=== PATIENT | female | born 1955 | race Caucasian/White ===

== ENCOUNTER 2016-10-14 05:33 | Emergency (ER) | payer BC ==
[2016-10-14] MEDS ORDERED: KETOROLAC 30 MG/ML 1 ML VIAL IVP STA (06:11)
[2016-10-14] MEDS ORDERED: RX INFO: IV CONTRAST WAS GIVEN 1 EACH MISC MISCELLANE PRN (06:11)
[2016-10-14] MEDS ORDERED: SODIUM CHLORIDE 0.9% 1,000 ML IV STA (06:11)
[2016-10-14 06:29] LABS: Basophils % (A) 0 %; CH 33.5; CHCM 34.5; Eosinophils # (A) 0.1 k/uL (0-0.7); Eosinophils % (A) 1 %; HCT 37.7 % (34.0-46.0); HDW 2.81; HGB 12.6 gm/dL (11.4-16.0); Luc # (Auto) 0.08; Luc % (Auto) 1; Lymphocytes # (A) 1.2 k/uL (1.0-4.8); Lymphocytes % (A) 18 %; MCH 32.7 pg (25.0-35.0); MCHC 33.5 g/dL (31.0-37.0); MCV 97.6 fL (80.0-100.0); Mean Platelet Volume 8.3; Monocytes # (A) 0.2 k/uL (0-1.0); Monocytes % (A) 4 %; Neutrophils # (A) 5.2 k/uL (1.3-7.7); Neutrophils % (A) 76 %; RBC 3.86 m/uL (3.80-5.40); RDW 13.3 % (11.5-15.5); WBC 6.9 k/uL (3.8-10.6); WBC (Perox) 7.01
[2016-10-14 06:34] LABS: Appearance,Urine Clear (Clear); Bacteria,Urine Rare /hpf; Bilirubin,Urine Negative (Negative); Glucose,Urine (UA) Negative (Negative); Ketones,Urine Negative (Negative); Leukocyte Esterase,Urine Small (Negative); Mucus,Urine Rare /hpf; Nitrite,Urine Negative (Negative); PH, Urine 5.5 (5.0-8.0); Particle Count 1575; Protein,Urine Negative (Negative); RBC,Urine 1 /hpf (0-5); Specific Gravity,Urine 1.017 (1.001-1.035); Squamous Epithelial Cell,Urine 2 /hpf (0-4); UA Billing (MACRO vs. MICRO) MICRO; Urobilinogen,Urine <2.0 mg/dL (<2.0); WBC,Urine 3 /hpf (0-5)
[2016-10-14 06:43] LABS: Partial Thromboplastin Time 23.8 sec (22.0-30.0); Prothrombin Time 9.9 sec (9.0-12.0)
[2016-10-14 06:54] LABS: ALT 29 U/L (9-52); AST 18 U/L (14-36); Alkaline Phosphatase 92 U/L (38-126); Amylase 45 U/L (30-110); Anion Gap 9 mmol/L; Blood Urea Nitrogen 25 mg/dL (7-17); Calcium 9.2 mg/dL (8.4-10.2); Carbon Dioxide 29 mmol/L (22-30); Chloride 104 mmol/L (98-107); Glucose 107 mg/dL (74-99); Non-African American GFR(MDRD) >60 (>60 ml/min/1.73 sqM); Potassium 4.3 mmol/L (3.5-5.1); Sodium 142 mmol/L (137-145); Total Bilirubin 0.3 mg/dL (0.2-1.3); Total Protein 6.6 g/dL (6.3-8.2)
--- NOTE | 2016-10-14 07:07 | ED ---
Abdominal Pain HPI - General Source: patient Mode of arrival: ambulatory Limitations: no limitations <Cortes Swain - Last Filed: 10/14/16 07:04> <Bladimir De Oliveira - Last Filed: 10/14/16 08:59> - General Chief Complaint: Abdominal Pain Stated Complaint: Flank Pain Time Seen by Provider: 10/14/16 06:05 - History of Present Illness Initial Comments: This 61-year-old female presents with a complaint of some left-sided abdominal pain which is been present for approximately 4 days. She states that his been fairly severe in nature. She saw her doctor approximately 2 days ago and was told that it may be related to some constipation. He apparently put her on some medication for constipation and she's had multiple bowel movements since but the abdominal pain has persisted. She denies any nausea vomiting or diarrhea. She denies any fevers or chills. She states that it is in the left abdomen and slightly lower. There is no flank pain. No other complaints or modifying factors. No previous similar incidents. (Cortes Swain) - Related Data Home Medications Medication Instructions Recorded Confirmed Atenolol [Tenormin] 50 mg PO DAILY 10/14/16 10/14/16 Cholecalciferol [Vitamin D3] 400 unit PO DAILY@1200 10/14/16 10/14/16 Losartan/Hydrochlorothiazide 1 each PO DAILY 10/14/16 10/14/16 [Losartan-Hctz 100-25 mg Tab] Omeprazole 40 mg PO DAILY 10/14/16 10/14/16 Previous Rx's Medication Instructions Recorded Acetaminophen-Codeine 300-30mg 1 each PO Q4H PRN #12 tablet 10/14/16 [Tylenol #3] Levofloxacin [Levaquin] 500 mg PO DAILY #10 tab 10/14/16 metroNIDAZOLE [Flagyl] 500 mg PO QID #40 tab 10/14/16 Allergies Allergy/AdvReac Type Severity Reaction Status Date / Time No Known Allergies Allergy Verified 10/14/16 05:47 Review of Systems ROS Other: All systems not noted in ROS Statement are negative. <Cortes Swain - Last Filed: 10/14/16 07:04> ROS Other: All systems not noted in ROS Statement are negative. <Bladimir De Oliveira - Last Filed: 10/14/16 08:59> ROS Statement: Those systems with pertinent positive or pertinent negative responses have been documented in the HPI. Past Medical History Past Medical History: GERD/Reflux, Hypertension History of Any Multi-Drug Resistant Organisms: None Reported Past Surgical History: Orthopedic Surgery Additional Past Surgical History / Comment(s): bilat shoulder and knee surgeries. states she had gallstones removed but she is unsure if they removed the gallbladder itself. Past Psychological History: No Psychological Hx Reported Smoking Status: Never smoker Past Alcohol Use History: None Reported Past Drug Use History: None Reported <Cortes Swain - Last Filed: 10/14/16 07:04> General Exam Limitations: no limitations <Cortes Swain - Last Filed: 10/14/16 07:04> <Bladimir De Oliveira - Last Filed: 10/14/16 08:59> - General Exam Comments Initial Comments: GENERAL: The patient is well nourished and well hydrated. VITAL SIGNS: Heart rate, blood pressure, respiratory rate reviewed as recorded in nurse's notes. EYES: Pupils are round and reactive. Extraocular movements are intact. No conjunctival / lid redness or swelling. ENT: No external evidence of injury, swelling, or ecchymosis. Airway is patent. Throat is clear. NECK: Nontender. No swelling or evidence of injury. No subcutaneous emphysema. Trachea is midline. No thyroid mass. HEART: Regular rate and rhythm. Good peripheral pulses. LUNGS/CHEST: Breath sounds clear and equal bilaterally. No rales, rhonchi, or wheezes. No ecchymosis, subcutaneous emphysema, or tenderness. ABDOMEN: There is tenderness to the mid left abdomen and just inferior. No palpable masses or organomegaly. No peritoneal signs. No abdominal wall swelling or ecchymosis. EXTREMITIES: No extremity tenderness. Normal muscle tone and function. No thoracolumbar tenderness. NEUROLOGIC: Sensation is grossly intact. Cranial nerve exam reveals face is symmetrical, tongue is midline, speech is clear. SKIN: No abrasions or ecchymosis is noted. No induration or masses noted. PSYCHIATRIC: Alert and oriented. Appropriate behavior and judgment. (Cortes Swain) Medical Decision Making - Lab Data Result diagrams: 10/14/16 05:55 <Cortes Swain - Last Filed: 10/14/16 07:04> - Lab Data Result diagrams: 10/14/16 05:55 10/14/16 05:55 - Radiology Data Radiology results: report reviewed (Computed tomography scan of the head and pelvis have findings consistent with diverticulitis.) <Bladimir De Oliveira - Last Filed: 10/14/16 08:59> - Medical Decision Making The patient was seen and examined. All diagnostics were reviewed to this point. Further care will be passed on to oncoming physician at 7 AM. (Cortes Swain) Patient reevaluated and resting comfortably in bed. Abdomen soft with mild tenderness left lower quadrant. Patient updated on results and need for follow- up. (Bladimir De Oliveira) - Lab Data Lab Results 10/14/16 10/14/16 10/14/16 Range/Units 05:55 05:55 05:55 WBC 6.9 (3.8-10.6) k/uL RBC 3.86 (3.80-5.40) m/uL Hgb 12.6 (11.4-16.0) gm/dL Hct 37.7 (34.0-46.0) % MCV 97.6 (80.0-100.0) fL MCH 32.7 (25.0-35.0) pg MCHC 33.5 (31.0-37.0) g/dL RDW 13.3 (11.5-15.5) % Plt Count 228 (150-450) k/uL Neutrophils % 76 % Lymphocytes % 18 % Monocytes % 4 % Eosinophils % 1 % Basophils % 0 % Neutrophils # 5.2 (1.3-7.7) k/uL Lymphocytes # 1.2 (1.0-4.8) k/uL Monocytes # 0.2 (0-1.0) k/uL Eosinophils # 0.1 (0-0.7) k/uL Basophils # 0.0 (0-0.2) k/uL PT 9.9 (9.0-12.0) sec INR 1.0 (<1.2) APTT 23.8 (22.0-30.0) sec Sodium 142 (137-145) mmol/L Potassium 4.3 (3.5-5.1) mmol/L Chloride 104 (98-107) mmol/L Carbon Dioxide 29 (22-30) mmol/L Anion Gap 9 mmol/L BUN 25 H (7-17) mg/dL Creatinine 0.83 (0.52-1.04) mg/dL Est GFR (MDRD) Af Amer >60 (>60 ml/min/1.73 sqM) Est GFR (MDRD) Non-Af >60 (>60 ml/min/1.73 sqM) Glucose 107 H (74-99) mg/dL Calcium 9.2 (8.4-10.2) mg/dL Total Bilirubin 0.3 (0.2-1.3) mg/dL AST 18 (14-36) U/L ALT 29 (9-52) U/L Alkaline Phosphatase 92 (38-126) U/L Total Protein 6.6 (6.3-8.2) g/dL Albumin 3.9 (3.5-5.0) g/dL Amylase 45 (30-110) U/L Lipase 110 (23-300) U/L Urine Color Urine Appearance (Clear) Urine pH (5.0-8.0) Ur Specific [place] (1.001-1.035) Urine Protein (Negative) Urine Glucose (UA) (Negative) Urine Ketones (Negative) Urine Blood (Negative) Urine Nitrite (Negative) Urine Bilirubin (Negative) Urine Urobilinogen (<2.0) mg/dL Ur Leukocyte Esterase (Negative) Urine RBC (0-5) /hpf Urine WBC (0-5) /hpf Ur Squamous Epith Cells (0-4) /hpf Urine Bacteria (None) /hpf Urine Mucus (None) /hpf 10/14/16 Range/Units 05:55 WBC (3.8-10.6) k/uL RBC (3.80-5.40) m/uL Hgb (11.4-16.0) gm/dL Hct (34.0-46.0) % MCV (80.0-100.0) fL MCH (25.0-35.0) pg MCHC (31.0-37.0) g/dL RDW (11.5-15.5) % Plt Count (150-450) k/uL Neutrophils % % Lymphocytes % % Monocytes % % Eosinophils % % Basophils % % Neutrophils # (1.3-7.7) k/uL Lymphocytes # (1.0-4.8) k/uL Monocytes # (0-1.0) k/uL Eosinophils # (0-0.7) k/uL Basophils # (0-0.2) k/uL PT (9.0-12.0) sec INR (<1.2) APTT (22.0-30.0) sec Sodium (137-145) mmol/L Potassium (3.5-5.1) mmol/L Chloride (98-107) mmol/L Carbon Dioxide (22-30) mmol/L Anion Gap mmol/L BUN (7-17) mg/dL Creatinine (0.52-1.04) mg/dL Est GFR (MDRD) Af Amer (>60 ml/min/1.73 sqM) Est GFR (MDRD) Non-Af (>60 ml/min/1.73 sqM) Glucose (74-99) mg/dL Calcium (8.4-10.2) mg/dL Total Bilirubin (0.2-1.3) mg/dL AST (14-36) U/L ALT (9-52) U/L Alkaline Phosphatase (38-126) U/L Total Protein (6.3-8.2) g/dL Albumin (3.5-5.0) g/dL Amylase (30-110) U/L Lipase (23-300) U/L Urine Color Yellow Urine Appearance Clear (Clear) Urine pH 5.5 (5.0-8.0) Ur Specific [place] 1.017 (1.001-1.035) Urine Protein Negative (Negative) Urine Glucose (UA) Negative (Negative) Urine Ketones Negative (Negative) Urine Blood Trace H (Negative) Urine Nitrite Negative (Negative) Urine Bilirubin Negative (Negative) Urine Urobilinogen <2.0 (<2.0) mg/dL Ur Leukocyte Esterase Small H (Negative) Urine RBC 1 (0-5) /hpf Urine WBC 3 (0-5) /hpf Ur Squamous Epith Cells 2 (0-4) /hpf Urine Bacteria Rare H (None) /hpf Urine Mucus Rare H (None) /hpf Disposition <Cortes Swain - Last Filed: 10/14/16 07:04> Time of Disposition: 08:59 <Bladimir De Oliveira - Last Filed: 10/14/16 08:59> Clinical Impression: Abdominal pain, Diverticulitis Disposition: HOME SELF-CARE Condition: Stable Instructions: Diverticulitis (ED) Additional Instructions: Please follow-up with your primary care physician this week. Return for increased pain, fevers, bleeding, worsening symptoms or other concerns. Prescriptions: Acetaminophen-Codeine 300-30mg [Tylenol #3] 1 each PO Q4H PRN #12 tablet PRN Reason: Pain Levofloxacin [Levaquin] 500 mg PO DAILY #10 tab metroNIDAZOLE [Flagyl] 500 mg PO QID #40 tab Referrals: Gomez Carter MD [Primary Care Provider] - 1-2 days
--- NOTE | 2016-10-14 08:42 | CT ---
EXAMINATION TYPE: CT abdomen pelvis w con DATE OF EXAM: 10/14/2016 COMPARISON: NONE HISTORY: Lt flank pain CT DLP: 1127.9 mGycm Automated exposure control for dose reduction was used. TECHNIQUE: Helical acquisition of images from the lung bases through the pelvis have been completed. CONTRAST: Performed without Oral Contrast and with IV Contrast, patient injected with 100 mL of Omnipaque 300. FINDINGS: LUNG BASES: Dependent atelectatic changes are present bilaterally. AORTA: No significant abnormality is appreciated. LIVER/GB: Low dense foci within the liver likely represent cysts, the larger in the left lobe measure s 2.3 cm, posterior right lobe shows a lesion measuring approximately 1 cm. Patient is post cholecyst ectomy. Liver shows low attenuation possibly due to hepatic steatosis. PANCREAS: No significant abnormality is seen. SPLEEN: No significant abnormality is seen. ADRENALS: No significant abnormality is seen. KIDNEYS: No significant abnormality is seen. REPRODUCTIVE ORGANS: Uterus is absent and the right ovary not seen with certainty, suspect left ovary remains in place BOWEL: At the sigmoid colon level there is diverticular change, there is local increased attenuation within the fat. Focal colonic wall thickening is also present, the appendix is not seen FREE AIR: No Free Air visible. ASCITES: None visible. There may be some minimal free fluid in the pelvis. PELVIC ADENOPATHY: None visualized. RETROPERITONEAL ADENOPATHY: No Retroperitoneal Adenopathy visible. URINARY BLADDER: No significant abnormality is seen. OSSEOUS STRUCTURES: No significant abnormality is seen. IMPRESSION: FINDINGS COMPATIBLE WITH DIVERTICULITIS, FOLLOW-UP IS RECOMMENDED. No evident abscess.
[2016-10-14 09:13] VITALS: BP 131/81; PULSE 60; RESP 16; TEMP 97.3
== END 2016-10-14 09:13 | disposition home or self-care (01) ==
LOC: EC 05:33
DX: K57.92 Diverticulitis of intestine, part unspecified, without perforation or abscess without bleeding (principal); I10 Essential (primary) hypertension; K21.9 Gastro-esophageal reflux disease without esophagitis; Z79.899 Other long term (current) drug therapy
CPT/HCPCS: 36415; 80053; 82150; 83690; 85025; 85610; 85730; 81001; 87040; 74177; 99284; 96374; 96361; J1885; Q9967

== ENCOUNTER → 2017-10-25 | Outpatient (CLI) | payer BC ==
--- NOTE | 2017-11-01 11:21 | MM ---
Reason for exam: screening (asymptomatic). History: Patient is postmenopausal. MG Screening Mammo w CAD Bilateral CC and MLO view(s) were taken. The breast tissue is heterogeneously dense. This may lower the sensitivity of mammography. There are benin appearing calcifications bilateral. No suspicious abnormallity. Stable right upper outer quadrant focal asymmetry. No significant changes when compared with prior studies. ASSESSMENT: Benign, BI-RAD 2 RECOMMENDATION: Routine screening mammogram of both breasts in 1 year.
== END | disposition home or self-care (01) ==
LOC: RADMAMWWP 06:57
PROVIDERS: ATTEND Family Medicine
DX: Z12.31 Encounter for screening mammogram for malignant neoplasm of breast (principal)
CPT/HCPCS: 77067

== ENCOUNTER → 2018-11-28 | Outpatient (CLI) | payer BC ==
--- NOTE | 2018-11-28 13:23 | MM ---
Reason for exam: screening (asymptomatic). Last mammogram was performed 1 year and 1 month ago. History: Patient is postmenopausal. Physical Findings: A clinical breast exam by your physician is recommended on an annual basis and results should be correlated with mammographic findings. MG Screening Mammo w CAD Bilateral CC and MLO view(s) were taken. Prior study comparison: October 25, 2017, bilateral MG screening mammo w CAD. The breast tissue is heterogeneously dense. This may lower the sensitivity of mammography. There are benign appearing round calcifications bilaterally. Asymmetric breast tissue in the right breast is stable. There is no discrete abnormality. ASSESSMENT: Benign, BI-RAD 2 RECOMMENDATION: Routine screening mammogram of both breasts in 1 year.
== END | disposition home or self-care (01) ==
LOC: RADMAMWWP 09:45
PROVIDERS: ATTEND Family Medicine
DX: Z12.31 Encounter for screening mammogram for malignant neoplasm of breast (principal)
CPT/HCPCS: 77067

== ENCOUNTER → 2020-01-02 | Outpatient (CLI) | payer MEDICARE ==
--- NOTE | 2020-01-06 11:51 | MM ---
Reason for exam: screening (asymptomatic). Last mammogram was performed 1 year and 1 month ago. History: Patient is postmenopausal. Physical Findings: A clinical breast exam by your physician is recommended on an annual basis and results should be correlated with mammographic findings. MG 3D Screening Mammo W/Cad Bilateral CC and MLO view(s) were taken. Prior study comparison: November 28, 2018, bilateral MG screening mammo w CAD. October 25, 2017, bilateral MG screening mammo w CAD. There are scattered fibroglandular densities. Benign appearing bilateral calcifications. No significant changes when compared with prior studies. ASSESSMENT: Benign, BI-RAD 2 RECOMMENDATION: Routine screening mammogram of both breasts in 1 year.
== END | disposition home or self-care (01) ==
LOC: RADMAMWWP 16:16
PROVIDERS: ATTEND Family Medicine
DX: Z12.31 Encounter for screening mammogram for malignant neoplasm of breast (principal)
CPT/HCPCS: 77063; 77067

== ENCOUNTER → 2021-04-12 | Outpatient (CLI) | payer MEDICARE ==
--- NOTE | 2021-04-13 14:16 | MM ---
Reason for exam: screening (asymptomatic). Last mammogram was performed 1 year and 3 months ago. History: Patient is postmenopausal. Physical Findings: A clinical breast exam by your physician is recommended on an annual basis and results should be correlated with mammographic findings. MG 3D Screening Mammo W/Cad Bilateral CC and MLO view(s) were taken. Prior study comparison: January 02, 2020, bilateral MG 3d screening mammo w/cad. November 28, 2018, bilateral MG screening mammo w CAD. The breast tissue is heterogeneously dense. This may lower the sensitivity of mammography. There are benign appearing round calcifications bilaterally. There is no discrete abnormality. ASSESSMENT: Benign, BI-RAD 2 RECOMMENDATION: Routine screening mammogram of both breasts in 1 year.
== END | disposition home or self-care (01) ==
LOC: RADMAMWWP 09:42
PROVIDERS: ATTEND Family Medicine
DX: Z12.31 Encounter for screening mammogram for malignant neoplasm of breast (principal); Z78.0 Asymptomatic menopausal state
CPT/HCPCS: 77063; 77067

== ENCOUNTER 2021-06-12 15:25 | Emergency (ER) | payer MEDICARE ==
[2021-06-12 16:19] LABS: Basophils % (A) 0 %; Eosinophils # (A) 0.1 k/uL (0-0.7); Eosinophils % (A) 2 %; HCT 41.6 % (34.0-46.0); HGB 13.6 gm/dL (11.4-16.0); Lymphocytes # (A) 1.3 k/uL (1.0-4.8); Lymphocytes % (A) 17 %; MCH 32.2 pg (25.0-35.0); MCHC 32.7 g/dL (31.0-37.0); MCV 98.4 fL (80.0-100.0); Mean Platelet Volume 8.8; Monocytes # (A) 0.3 k/uL (0-1.0); Monocytes % (A) 4 %; Neutrophils # (A) 6.2 k/uL (1.3-7.7); Neutrophils % (A) 77 %; Platelet Count 199 k/uL (150-450); RBC 4.23 m/uL (3.80-5.40); WBC 8.1 k/uL (3.8-10.6)
[2021-06-12 16:42] LABS: Albumin 4.1 g/dL (3.5-5.0); Potassium 3.8 mmol/L (3.5-5.1); Total Bilirubin 0.8 mg/dL (0.2-1.3); Total Protein 7.1 g/dL (6.3-8.2)
--- NOTE | 2021-06-12 17:22 | CT ---
EXAMINATION TYPE: CT abdomen pelvis w con DATE OF EXAM: 06/12/2021 COMPARISON: 10/14/2016 HISTORY: Left sided and epigastric abdominal pain. CT DLP: 1215.8 mGycm Automated exposure control for dose reduction was used. CONTRAST: Performed with IV Contrast, patient injected with 100ml mL of Isovue 300. Lung bases are clear. There is no pleural effusion. Heart size is normal. There is no pericardial eff usion. There are small 2 cm hypodense foci in the liver that are likely cysts. Spleen is intact. There is no pancreatic mass. There are clips from cholecystectomy. Stomach is intact. There is no adrenal mass. Kidneys show satisfactory contrast opacification. There is no hydronephrosi s. Ureters are not dilated. Appendix is posterior. Bladder distends smoothly. There is no inguinal hernia. There is no free fluid in the pelvis. Appendi x appears normal. There is fat stranding around the proximal sigmoid colon with wall thickening. There are numerous sig moid diverticula. No free air. No ascites. No evidence of bowel obstruction. Lumbar vertebrae have fairly normal alignment. There is mild anterior subluxation of L4 in relation L 5 of 4 mm. Facet joints are intact. Bony pelvis is intact. The hip joints are intact. IMPRESSION: There is sigmoid diverticulitis in same location as old exam. No abscess or drainable fluid collectio n. Degenerative first degree L4-5 spondylolisthesis.
[2021-06-12 17:39] LABS: Appearance,Urine Clear (Clear); Bilirubin,Urine Negative (Negative); Blood,Urine Negative (Negative); Color,Urine Yellow; Glucose,Urine (UA) Negative (Negative); Ketones,Urine Negative (Negative); Leukocyte Esterase,Urine Small (Negative); Nitrite,Urine Negative (Negative); PH, Urine 6.5 (5.0-8.0); Protein,Urine Negative (Negative); RBC,Urine 2 /hpf (0-5); Specific Gravity,Urine 1.034 (1.001-1.035); Squamous Epithelial Cell,Urine <1 /hpf (0-4); Urobilinogen,Urine <2.0 mg/dL (<2.0); WBC,Urine <1 /hpf (0-5)
[2021-06-12] MEDS ORDERED: MORPHINE SULFATE 4 MG/ML SYRINGE IVP STA (17:44)
[2021-06-12] MEDS ORDERED: ONDANSETRON 4 MG/2 ML VIAL IVP STA (17:45)
[2021-06-12] MEDS ORDERED: cefTRIAXone IN SWFI 1,000 MG/10 ML SYRINGE IVP STA (18:13)
[2021-06-12] MEDS ORDERED: metroNIDAZOLE 500 MG TAB PO STA (18:13)
[2021-06-12 18:20] VITALS: RESP 16
--- NOTE | 2021-06-12 18:22 | ED ---
Abdominal Pain HPI - General Chief Complaint: Abdominal Pain Stated Complaint: Abdominal pain Time Seen by Provider: 06/12/21 15:56 Source: patient Mode of arrival: ambulatory Limitations: no limitations - History of Present Illness Initial Comments: 66-year-old female presents emergency department from urgent care. States that over the past few days she has had pain in her left lower quadrant. This began after she was eating peanuts 2 days ago. She has had history of similar pain in the past and she was diagnosed with diverticulitis 4 years ago. The pain radiates to her epigastric area. She took some antibiotics from her recent knee surgery but does not appear to help the symptoms. She went into urgent care who recommended that she come to the emergency room for further evaluation. Urgent care did complete a urinalysis which was negative for any acute infection. She denies nausea, vomiting, constipation, diarrhea, black or bloody stools. No changes in her urination. No other alleviating, or modifying factors - Related Data Home Medications Medication Instructions Recorded Confirmed Cholecalciferol [Vitamin D3] 400 unit PO DAILY@1200 10/14/16 10/14/16 Losartan/Hydrochlorothiazide 1 each PO DAILY 10/14/16 10/14/16 [Losartan-Hctz 100-25 mg Tab] Omeprazole 40 mg PO DAILY 10/14/16 10/14/16 atenoloL [Tenormin] 50 mg PO DAILY 10/14/16 10/14/16 Previous Rx's Medication Instructions Recorded Acetaminophen-Codeine 300-30mg 1 each PO Q4H PRN #12 tablet 10/14/16 [Tylenol #3] Levofloxacin [Levaquin] 500 mg PO DAILY #10 tab 10/14/16 metroNIDAZOLE [Flagyl] 500 mg PO QID #40 tab 10/14/16 Amoxicillin/Potassium Clav 1 tab PO Q12HR #20 tab 06/12/21 [Augmentin 875-125 Tablet] Allergies Allergy/AdvReac Type Severity Reaction Status Date / Time No Known Allergies Allergy Verified 06/12/21 15:33 Review of Systems ROS Statement: Those systems with pertinent positive or pertinent negative responses have been documented in the HPI. ROS Other: All systems not noted in ROS Statement are negative. Past Medical History Past Medical History: GERD/Reflux, Hypertension Additional Past Medical History / Comment(s): diverticulitis History of Any Multi-Drug Resistant Organisms: None Reported Past Surgical History: Orthopedic Surgery Additional Past Surgical History / Comment(s): bilat shoulder and knee surgeries. states she had gallstones removed but she is unsure if they removed the gallbladder itself. Past Psychological History: No Psychological Hx Reported Smoking Status: Never smoker Past Alcohol Use History: None Reported Past Drug Use History: None Reported General Exam Limitations: no limitations Course Vital Signs 06/12/21 06/12/21 06/12/21 15:33 18:19 18:53 Temperature 97.5 F L 97.8 F Pulse Rate 67 64 67 Respiratory 18 16 16 Rate Blood Pressure 133/83 117/69 117/85 O2 Sat by Pulse 98 95 95 Oximetry Medical Decision Making - Medical Decision Making Upon arrival patient is placed into room 1. A thorough history and physical exam was performed. Patient is offered something for pain control however originally refuses. Laboratory studies are conducted. Patient then begins to request something for pain. She was given 4 mg of morphine and 4 mg of Zofran. Laboratory studies are reviewed and are within normal limits. Abdomen and pelvis CT is performed which demonstrates fat stranding around the proximal si gmoid colon with wall thickening. Sigmoid diverticula. Patient is given a dose of Rocephin and Flagyl. Will be discharged home on Augmentin. Instructed to follow-up with the primary care doctor in 2-4 days and return for any new or worsening symptoms. Patient agreed to the treatment plan she was discharged in stable condition - Lab Data Result diagrams: 06/12/21 16:07 06/12/21 16:07 Lab Results 06/12/21 06/12/21 06/12/21 Range/Units 16:07 16:07 16:07 WBC 8.1 (3.8-10.6) k/uL RBC 4.23 (3.80-5.40) m/uL Hgb 13.6 (11.4-16.0) gm/dL Hct 41.6 (34.0-46.0) % MCV 98.4 (80.0-100.0) fL MCH 32.2 (25.0-35.0) pg MCHC 32.7 (31.0-37.0) g/dL RDW 12.0 (11.5-15.5) % Plt Count 199 (150-450) k/uL MPV 8.8 Neutrophils % 77 % Lymphocytes % 17 % Monocytes % 4 % Eosinophils % 2 % Basophils % 0 % Neutrophils # 6.2 (1.3-7.7) k/uL Lymphocytes # 1.3 (1.0-4.8) k/uL Monocytes # 0.3 (0-1.0) k/uL Eosinophils # 0.1 (0-0.7) k/uL Basophils # 0.0 (0-0.2) k/uL Sodium 139 (137-145) mmol/L Potassium 3.8 (3.5-5.1) mmol/L Chloride 103 (98-107) mmol/L Carbon Dioxide 27 (22-30) mmol/L Anion Gap 9 mmol/L BUN 22 H (7-17) mg/dL Creatinine 0.84 (0.52-1.04) mg/dL Est GFR (CKD-EPI)AfAm 83 (>60 ml/min/1.73 sqM) Est GFR (CKD-EPI)NonAf 72 (>60 ml/min/1.73 sqM) Glucose 95 (74-99) mg/dL Plasma Lactic Acid Kash (0.7-2.0) mmol/L Calcium 9.0 (8.4-10.2) mg/dL Total Bilirubin 0.8 (0.2-1.3) mg/dL AST 22 (14-36) U/L ALT 16 (4-34) U/L Alkaline Phosphatase 88 (38-126) U/L Total Protein 7.1 (6.3-8.2) g/dL Albumin 4.1 (3.5-5.0) g/dL Lipase 88 (23-300) U/L Urine Color Yellow Urine Appearance Clear (Clear) Urine pH 6.5 (5.0-8.0) Ur Specific [place] 1.034 (1.001-1.035) Urine Protein Negative (Negative) Urine Glucose (UA) Negative (Negative) Urine Ketones Negative (Negative) Urine Blood Negative (Negative) Urine Nitrite Negative (Negative) Urine Bilirubin Negative (Negative) Urine Urobilinogen <2.0 (<2.0) mg/dL Ur Leukocyte Esterase Small H (Negative) Urine RBC 2 (0-5) /hpf Urine WBC <1 (0-5) /hpf Ur Squamous Epith Cells <1 (0-4) /hpf 06/12/21 Range/Units 16:07 WBC (3.8-10.6) k/uL RBC (3.80-5.40) m/uL Hgb (11.4-16.0) gm/dL Hct (34.0-46.0) % MCV (80.0-100.0) fL MCH (25.0-35.0) pg MCHC (31.0-37.0) g/dL RDW (11.5-15.5) % Plt Count (150-450) k/uL MPV Neutrophils % % Lymphocytes % % Monocytes % % Eosinophils % % Basophils % % Neutrophils # (1.3-7.7) k/uL Lymphocytes # (1.0-4.8) k/uL Monocytes # (0-1.0) k/uL Eosinophils # (0-0.7) k/uL Basophils # (0-0.2) k/uL Sodium (137-145) mmol/L Potassium (3.5-5.1) mmol/L Chloride (98-107) mmol/L Carbon Dioxide (22-30) mmol/L Anion Gap mmol/L BUN (7-17) mg/dL Creatinine (0.52-1.04) mg/dL Est GFR (CKD-EPI)AfAm (>60 ml/min/1.73 sqM) Est GFR (CKD-EPI)NonAf (>60 ml/min/1.73 sqM) Glucose (74-99) mg/dL Plasma Lactic Acid Kash 0.9 (0.7-2.0) mmol/L Calcium (8.4-10.2) mg/dL Total Bilirubin (0.2-1.3) mg/dL AST (14-36) U/L ALT (4-34) U/L Alkaline Phosphatase (38-126) U/L Total Protein (6.3-8.2) g/dL Albumin (3.5-5.0) g/dL Lipase (23-300) U/L Urine Color Urine Appearance (Clear) Urine pH (5.0-8.0) Ur Specific [place] (1.001-1.035) Urine Protein (Negative) Urine Glucose (UA) (Negative) Urine Ketones (Negative) Urine Blood (Negative) Urine Nitrite (Negative) Urine Bilirubin (Negative) Urine Urobilinogen (<2.0) mg/dL Ur Leukocyte Esterase (Negative) Urine RBC (0-5) /hpf Urine WBC (0-5) /hpf Ur Squamous Epith Cells (0-4) /hpf Disposition Clinical Impression: Abdominal pain, Diverticulitis Disposition: HOME SELF-CARE Condition: Stable Instructions (If sedation given, give patient instructions): Diverticulitis (ED) Additional Instructions: Take Aleve and Tylenol at home for pain. Take antibiotics as directed starting tomorrow. Increase your fluid intake and take a fiber supplement. Return to the emergency room for any new or worsening symptoms Prescriptions: Amoxicillin/Potassium Clav [Augmentin 875-125 Tablet] 1 tab PO Q12HR #20 tab Is patient prescribed a controlled substance at d/c from ED?: No Referrals: Gomez Carter MD [Primary Care Provider] - 1-2 days Tyesha Keyes MD [STAFF PHYSICIAN] - 1-2 days Time of Disposition: 18:23
[2021-06-12 18:55] VITALS: BP 117/85; PULSE 67; TEMP 97.8
== END 2021-06-12 18:53 | disposition home or self-care (01) ==
LOC: EC 15:25
DX: K57.32 Diverticulitis of large intestine without perforation or abscess without bleeding (principal); I10 Essential (primary) hypertension; K21.9 Gastro-esophageal reflux disease without esophagitis; Z79.899 Other long term (current) drug therapy
CPT/HCPCS: 36415; 80053; 83605; 83690; 85025; 81001; 74177; 99284; 96374; 96375 ×2; J2270; J2405; J0696; Q9967

== ENCOUNTER 2022-03-28 03:53 | Emergency (ER) | payer MEDICARE ==
[2022-03-28 04:04] VITALS: RESP 18
[2022-03-28] MEDS ORDERED: SODIUM CHLORIDE 0.9% 1,000 ML IV ONE (04:28)
[2022-03-28 05:09] LABS: Basophils % (A) 0 %; Eosinophils # (A) 0.1 k/uL (0-0.7); Eosinophils % (A) 1 %; HCT 37.8 % (34.0-46.0); HGB 13.3 gm/dL (11.4-16.0); Lymphocytes # (A) 0.3 k/uL (1.0-4.8); Lymphocytes % (A) 5 %; MCH 32.6 pg (25.0-35.0); MCHC 35.1 g/dL (31.0-37.0); Mean Platelet Volume 8.7; Monocytes # (A) 0.1 k/uL (0-1.0); Monocytes % (A) 2 %; Neutrophils % (A) 92 %; Platelet Count 171 k/uL (150-450); RBC 4.07 m/uL (3.80-5.40); RDW 12.4 % (11.5-15.5); WBC 6.5 k/uL (3.8-10.6)
[2022-03-28] MEDS ORDERED: ONDANSETRON 4 MG/2 ML VIAL IVP STA (05:16)
[2022-03-28] MEDS ORDERED: KETOROLAC 15 MG/ML 1 ML VIAL IVP STA (05:16)
[2022-03-28 05:19] LABS: ALT 24 U/L (4-34); AST 24 U/L (14-36); African American GFR (CKD) >90 (>60 ml/min/1.73 sqM); Albumin 3.8 g/dL (3.5-5.0); Alkaline Phosphatase 74 U/L (38-126); Anion Gap 8 mmol/L; Blood Urea Nitrogen 24 mg/dL (7-17); Calcium 8.7 mg/dL (8.4-10.2); Carbon Dioxide 24 mmol/L (22-30); Chloride 105 mmol/L (98-107); Glucose 122 mg/dL (74-99); Lipase 84 U/L (23-300); Magnesium 1.5 mg/dL (1.6-2.3); Non-African American GFR(CKD) 79 (>60 ml/min/1.73 sqM); Sodium 137 mmol/L (137-145); Total Bilirubin 0.6 mg/dL (0.2-1.3); Total Protein 6.5 g/dL (6.3-8.2)
--- NOTE | 2022-03-28 05:20 | ED ---
General Adult HPI - General Chief complaint: Weakness Stated complaint: Syncope, Nausea, Diarrhea Time Seen by Provider: 03/28/22 03:58 Source: patient Mode of arrival: EMS - History of Present Illness Initial comments: This is a 67-year-old female with a past medical history including hypertension presents emergency department via EMS after she had an episode of nausea, v omiting and diarrhea as well as a syncopal episode. The patient stated that she got home from work and had nausea and vomiting and went to the bathroom and had an episode of diarrhea. The patient stated that when she got up off the toilet she stated that her vision went black and she started feeling hot and does not remember what happened after that. The patient stated that she was found on the floor by her family after she woke up. The patient denied of any seizure-like activity noted and stated that she did not have any pain in her head. It was reported the patient did not hit her head by the that was in the room. The patient herself stated that she had continued abdominal pain as well as mild nausea. The patient denied any fevers and chills. The patient also did state that she had recent sick contacts as her had similar episode to this last week. The patient was resting in bed comfortably in could answer all questions appropriately. - Related Data Home Medications Medication Instructions Recorded Confirmed Cholecalciferol [Vitamin D3] 400 unit PO DAILY@1200 10/14/16 10/14/16 Losartan/Hydrochlorothiazide 1 each PO DAILY 10/14/16 10/14/16 [Losartan-Hctz 100-25 mg Tab] Omeprazole 40 mg PO DAILY 10/14/16 10/14/16 atenoloL [Tenormin] 50 mg PO DAILY 10/14/16 10/14/16 Previous Rx's Medication Instructions Recorded Acetaminophen-Codeine 300-30mg 1 each PO Q4H PRN #12 tablet 10/14/16 [Tylenol #3] Levofloxacin [Levaquin] 500 mg PO DAILY #10 tab 10/14/16 metroNIDAZOLE [Flagyl] 500 mg PO QID #40 tab 10/14/16 Amoxicillin/Potassium Clav 1 tab PO Q12HR #20 tab 06/12/21 [Augmentin 875-125 Tablet] Ondansetron Odt [Zofran Odt] 4 mg PO Q8HR PRN #20 tab 03/28/22 Allergies Allergy/AdvReac Type Severity Reaction Status Date / Time No Known Allergies Allergy Verified 03/28/22 04:04 Review of Systems ROS Statement: Those systems with pertinent positive or pertinent negative responses have been documented in the HPI. ROS Other: All systems not noted in ROS Statement are negative. Past Medical History Past Medical History: GERD/Reflux, Hypertension Additional Past Medical History / Comment(s): diverticulitis History of Any Multi-Drug Resistant Organisms: None Reported Past Surgical History: Orthopedic Surgery Additional Past Surgical History / Comment(s): bilat shoulder and knee surgeries. states she had gallstones removed but she is unsure if they removed the gallbladder itself. Past Psychological History: No Psychological Hx Reported Smoking Status: Never smoker Past Alcohol Use History: None Reported Past Drug Use History: None Reported General Exam Limitations: no limitations General appearance: alert, in no apparent distress Head exam: Present: atraumatic, normocephalic, normal inspection Eye exam: Present: normal appearance, PERRL Pupils: Present: normal accommodation ENT exam: Present: normal exam, normal oropharynx, mucous membranes moist Neck exam: Present: normal inspection, full ROM Respiratory exam: Present: normal lung sounds bilaterally Cardiovascular Exam: Present: regular rate, normal rhythm, normal heart sounds GI/Abdominal exam: Present: tenderness (Tenderness to palpation noted on the epigastric and umbilical region without any tenderness noted in the right lower quadrant.) Extremities exam: Present: normal inspection, full ROM Back exam: Present: normal inspection, full ROM Neurological exam: Present: alert, oriented X3, CN II-XII intact Psychiatric exam: Present: normal affect, normal mood Skin exam: Present: warm, dry Course Vital Signs 03/28/22 03/28/22 03:57 05:15 Temperature 98.1 F 98.3 F Pulse Rate 87 91 Respiratory 18 18 Rate Blood Pressure 124/74 114/70 O2 Sat by Pulse 100 96 Oximetry EKG Findings - EKG Comments: EKG Findings:: An EKG was obtained and was interpreted by myself showing a rate of 90, WA interval 169, QRS duration of 85 and QTC of 332. This EKG showed a normal sinus rhythm with no ST segment elevation or depression noted. Medical Decision Making - Medical Decision Making Was pt. sent in by a medical professional or institution (, PA, QA AUDITOR, urgent care, hospital, or snf...) When possible be specific @ -No Did you speak to anyone other than the patient for history (EMS, parent, family, police, friend...)? What history was obtained from this source @ -Yes, patient's Did you review nursing and triage notes (agree or disagree)? Why? @ -I reviewed and agree with nursing and triage notes Were old charts reviewed (outside hosp., previous admission, EMS record, old EKG, old radiological studies, urgent care reports/EKG's, snf records)? Report findings @ -No old charts were reviewed Differential Diagnosis (chest pain, altered mental status, abdominal pain women, abdominal pain men, vaginal bleeding, weakness, fever, dyspnea, syncope, headache, dizziness, GI bleed, back pain, seizure, CVA, palpatations, mental health)? @ -Vasovagal syncope, gastroenteritis, dehydration EKG interpreted by me (3pts min.). @ -As above X-rays interpreted by me (1pt min.). @ -None done CT interpreted by me (1pt min.). @ -CT abdomen and pelvis with contrast was obtained and was interpreted by myself showing sigmoid diverticulosis without diverticulitis. There was no other pathology noted. U/S interpreted by me (1pt. min.). @ -None done What testing was considered but not performed or refused? (CT, X-rays, U/S, labs)? Why? @ -None What meds were considered but not given or refused? Why? @ -None Did you discuss the management of the patient with other professionals (professionals i.e. , PA, QA AUDITOR, lab, RT, psych nurse, social work faculty member, snuff grinder, teacher, coastal/harbor defense officer, continuous pillowcase cutter)? Give summary @ -No Was smoking cessation discussed for >3mins.? @ -No Was critical care preformed (if so, how long)? @ -No Were there social determinants of health that impacted care today? How? (Homel essness, low income, unemployed, alcoholism, drug addiction, transportation, low edu. Level, literacy, decrease access to med. care, prison, rehab)? @ -No Was there de-escalation of care discussed even if they declined (Discuss DNR or withdrawal of care, Hospice)? DNR status @ -No What co-morbidities impacted this encounter? (DM, HTN, Smoking, COPD, CAD, Cancer, CVA, ARF, Chemo, Hep., AIDS, mental health diagnosis, sleep apnea, morbid obesity)? @ -Hypertension Was patient admitted / discharged? Hospital course, mention meds given and route, prescriptions, significant lab abnormalities, going to OR and other pertinent info. @ -The patient was seen and evaluated emergency department. Physical exam, the patient was resting in bed without any acute distress. Vital signs were stable. Laboratory workup was within normal limits and the patient's vital signs re mained stable throughout her stay in the emergency department. Imaging was also negative at this time. The patient likely had an episode of gastroenteritis with nausea and vomiting likely leading to vasovagal syncope. The patient was given fluids and Zofran as well as Toradol and on reevaluation stated her symptoms were improved. The patient remained stable and will be discharged home in stable fashion with her . The patient was advised report back to the emergency department if her pain or symptoms became acutely worse. Undiagnosed new problem with uncertain prognosis? @ -No Drug Therapy requiring intensive monitoring for toxicity (Heparin, Nitro, Insulin, Cardizem)? @ -No Were any procedures done? @ -No Diagnosis/symptom? @ -Vasovagal syncope secondary to diarrhea and dehydration Acute, or Chronic, or Acute on Chronic? @ -Acute Uncomplicated (without systemic symptoms) or Complicated (systemic symptoms)? @ -Uncomplicated Side effects of treatment? @ -No Exacerbation, Progression, or Severe Exacerbation? @ -No Poses a threat to life or bodily function? How? (Chest pain, [place], VA, pneumonia, PE, COPD, DKA, ARF, appy, cholecystitis, CVA, Diverticulitis, Homicidal, Suicidal, threat to staff... and all critical care pts) @ -No - Lab Data Result diagrams: 03/28/22 05:03 03/28/22 05:03 Lab Results 03/28/22 03/28/22 03/28/22 Range/Units 05:03 05:03 05:03 WBC 6.5 (3.8-10.6) k/uL RBC 4.07 (3.80-5.40) m/uL Hgb 13.3 (11.4-16.0) gm/dL Hct 37.8 (34.0-46.0) % MCV 93.0 (80.0-100.0) fL MCH 32.6 (25.0-35.0) pg MCHC 35.1 (31.0-37.0) g/dL RDW 12.4 (11.5-15.5) % Plt Count 171 (150-450) k/uL MPV 8.7 Neutrophils % 92 % Lymphocytes % 5 % Monocytes % 2 % Eosinophils % 1 % Basophils % 0 % Neutrophils # 6.0 (1.3-7.7) k/uL Lymphocytes # 0.3 L (1.0-4.8) k/uL Monocytes # 0.1 (0-1.0) k/uL Eosinophils # 0.1 (0-0.7) k/uL Basophils # 0.0 (0-0.2) k/uL PT 10.8 (9.0-12.0) sec INR 1.0 (<1.2) APTT 23.4 (22.0-30.0) sec Sodium 137 (137-145) mmol/L Potassium 4.0 (3.5-5.1) mmol/L Chloride 105 (98-107) mmol/L Carbon Dioxide 24 (22-30) mmol/L Anion Gap 8 mmol/L BUN 24 H (7-17) mg/dL Creatinine 0.78 (0.52-1.04) mg/dL Est GFR (CKD-EPI)AfAm >90 (>60 ml/min/1.73 sqM) Est GFR (CKD-EPI)NonAf 79 (>60 ml/min/1.73 sqM) Glucose 122 H (74-99) mg/dL Calcium 8.7 (8.4-10.2) mg/dL Magnesium 1.5 L (1.6-2.3) mg/dL Total Bilirubin 0.6 (0.2-1.3) mg/dL AST 24 (14-36) U/L ALT 24 (4-34) U/L Alkaline Phosphatase 74 (38-126) U/L Troponin I (0.000-0.034) ng/mL NT-Pro-B Natriuret Pep pg/mL Total Protein 6.5 (6.3-8.2) g/dL Albumin 3.8 (3.5-5.0) g/dL Lipase 84 (23-300) U/L 03/28/22 03/28/22 Range/Units 05:03 05:03 WBC (3.8-10.6) k/uL RBC (3.80-5.40) m/uL Hgb (11.4-16.0) gm/dL Hct (34.0-46.0) % MCV (80.0-100.0) fL MCH (25.0-35.0) pg MCHC (31.0-37.0) g/dL RDW (11.5-15.5) % Plt Count (150-450) k/uL MPV Neutrophils % % Lymphocytes % % Monocytes % % Eosinophils % % Basophils % % Neutrophils # (1.3-7.7) k/uL Lymphocytes # (1.0-4.8) k/uL Monocytes # (0-1.0) k/uL Eosinophils # (0-0.7) k/uL Basophils # (0-0.2) k/uL PT (9.0-12.0) sec INR (<1.2) APTT (22.0-30.0) sec Sodium (137-145) mmol/L Potassium (3.5-5.1) mmol/L Chloride (98-107) mmol/L Carbon Dioxide (22-30) mmol/L Anion Gap mmol/L BUN (7-17) mg/dL Creatinine (0.52-1.04) mg/dL Est GFR (CKD-EPI)AfAm (>60 ml/min/1.73 sqM) Est GFR (CKD-EPI)NonAf (>60 ml/min/1.73 sqM) Glucose (74-99) mg/dL Calcium (8.4-10.2) mg/dL Magnesium (1.6-2.3) mg/dL Total Bilirubin (0.2-1.3) mg/dL AST (14-36) U/L ALT (4-34) U/L Alkaline Phosphatase (38-126) U/L Troponin I <0.012 (0.000-0.034) ng/mL NT-Pro-B Natriuret Pep 143 pg/mL Total Protein (6.3-8.2) g/dL Albumin (3.5-5.0) g/dL Lipase (23-300) U/L Disposition Clinical Impression: Gastroenteritis, Vasovagal syncope Disposition: HOME SELF-CARE Condition: Stable Instructions (If sedation given, give patient instructions): Syncope (DC), Gastroenteritis (DC) Prescriptions: Ondansetron Odt [Zofran Odt] 4 mg PO Q8HR PRN #20 tab PRN Reason: Nausea Is patient prescribed a controlled substance at d/c from ED?: No Referrals: Gomez Carter MD [Primary Care Provider] - 1-2 days Time of Disposition: 07:00
[2022-03-28 05:30] LABS: Partial Thromboplastin Time 23.4 sec (22.0-30.0); Prothrombin Time 10.8 sec (9.0-12.0)
--- NOTE | 2022-03-28 06:02 | CT ---
EXAMINATION TYPE: CT abdomen pelvis w con DATE OF EXAM: 03/28/2022 COMPARISON: 06/12/2021 HISTORY: N&V&D with acute abd pain CT DLP: 1336.1 mGycm Automated exposure control for dose reduction was used. CONTRAST: Performed with IV Contrast, patient injected with 100 mL of Isovue 300. Images obtained from the diaphragm to the floor the pelvis with the IV contrast. The lung bases show mild subsegmental atelectasis. Heart size is normal. No pericardial effusion. No pleural effusion. There is 2 cm hypodensity in the posterior superior right lobe of the liver that could be a cyst. Unc hanged. Liver has normal size and contour. Spleen is intact. No pancreatic mass. There are clips from cholecystectomy. The stomach is intact. There is no adrenal mass. Kidneys show satisfactory contrast opacification. No hydronephrosis. Ureter s are not dilated. Bladder distends smoothly. No inguinal hernia. No free fluid in the pelvis. There are multiple sigmoid diverticula. There is mild wall thickening of the sigmoid colon. No eviden ce of a bowel obstruction. No ascites or free air. Appendix is posterior and appears normal. The lumbar vertebra appear intact. No compression fracture. There is minimal degenerative subluxation at L4-5 of 4 mm. There is minor spurring of the facet joints. There is vacuum disc at L4-5 and L5-S1 . The bony pelvis is intact. The hip joints appear intact. IMPRESSION: There is sigmoid diverticulosis with hypertrophic changes in the sigmoid colon but no definite divert iculitis. There is clearing of the fat stranding around the sigmoid colon compared to last exam. Normal appendix. Mild subsegmental atelectasis at the lung bases is new compared to old exam.
[2022-03-28 08:10] VITALS: BP 104/62; PULSE 95; TEMP 98.1
== END 2022-03-28 08:12 | disposition home or self-care (01) ==
LOC: EC 03:53
DX: K52.9 Noninfective gastroenteritis and colitis, unspecified (principal); R55 Syncope and collapse; K21.9 Gastro-esophageal reflux disease without esophagitis; I10 Essential (primary) hypertension; Z79.899 Other long term (current) drug therapy; Z20.822 Contact with and (suspected) exposure to COVID-19
CPT/HCPCS: 36415; 93005; 83880; 80053; 83690; 83735; 84484; 85025; 85610; 85730; 87636; 74177; 99285; 96374; 96375; 96361 ×3; J2405; J1885; Q9967

== ENCOUNTER → 2023-07-27 | Outpatient (CLI) | payer MEDICARE ==
--- NOTE | 2023-07-30 14:58 | MM ---
Reason for Exam: Screening (asymptomatic). Last mammogram was performed 1 year(s) and 3 month(s) ago. Patient History: Menarche at age 9. First Full-Term at age 22. Hysterectomy at age 41. Postmenopausal. Risk Values: Elma 5 year model risk: 1.7%. NCI Lifetime model risk: 5.2%. Prior Study Comparison: 01/02/2020 Bilateral Screening Mammogram, [facility]. 04/12/2021 Bilateral Screening Mammogram, [facility]. 05/02/2022 Bilateral MG 3D screening mammo w/cad, [facility]. Tissue Density: There are scattered areas of fibroglandular density. Findings: Analyzed By CAD. Right breast: There is no suspicious group of microcalcifications or new suspicious mass. Left breast: There is no suspicious group of microcalcifications or new suspicious mass. Overall Assessment: Negative, BI-RAD 1 Management: Screening Mammogram of both breasts in [address] [facility] will attempt to contact patient to return for supplemental views and ultrasound if indicated. Patient should continue monthly self-breast exams. A clinical breast exam by your physician is recommended on an annual basis. This exam should not preclude additional follow-up of suspicious palpable abnormalities. Note on Elma scores and lifetime risk: 1. A Elma score greater than 3% is considered moderate risk. If this is the case, consider specialist referral to assess eligibility for a risk reducing agent. 2. If overall lifetime risk for the development of breast cancer is 20% or higher, the patient may qualify for future screening with alternating mammogram and breast MRI. Electronically signed and approved by: Cortes Chowdhury DO
== END | disposition home or self-care (01) ==
LOC: RADMAMWWP 08:34
PROVIDERS: ATTEND Family Medicine
DX: Z12.31 Encounter for screening mammogram for malignant neoplasm of breast (principal); Z78.0 Asymptomatic menopausal state
CPT/HCPCS: 77063; 77067

== ENCOUNTER 2024-06-08 16:39 | Emergency (ER) | payer MEDICARE ==
[2024-06-08] MEDS: SODIUM CHLORIDE 0.9% 1,000 ML IV ONE (16:58)
[2024-06-08 17:19] LABS: Basophils % (A) 0 %; Eosinophils # (A) 0.1 k/uL (0-0.7); Eosinophils % (A) 1 %; HCT 40.8 % (34.0-46.0); HGB 13.8 gm/dL (11.4-16.0); Lymphocytes # (A) 0.5 k/uL (1.0-4.8); Lymphocytes % (A) 13 %; MCH 32.5 pg (25.0-35.0); MCHC 33.8 g/dL (31.0-37.0); MCV 96.4 fL (80.0-100.0); Mean Platelet Volume 9.3; Monocytes # (A) 0.2 k/uL (0-1.0); Monocytes % (A) 5 %; Neutrophils # (A) 3.2 k/uL (1.3-7.7); Neutrophils % (A) 79 %; Platelet Count 107 k/uL (150-450); RBC 4.23 m/uL (3.80-5.40); RDW 12.6 % (11.5-15.5)
--- NOTE | 2024-06-08 17:25 | ED ---
Dizziness HPI - General Chief Complaint: Syncope Stated Complaint: Near syncope Time Seen by Provider: 06/08/24 16:42 Source: patient, RN notes reviewed, old records reviewed Mode of arrival: ambulatory Limitations: no limitations - History of Present Illness Initial Comments: This is a 69-year-old female to the ER for evaluation of a near syncopal event. Patient with change in position today is felt like she could pass out she also feels dizzy lightheaded and the room spins around. History of similar event 2 years ago unsure of what the diagnosis was at the time no history of CVA does have high blood pressure non-smoker no high cholesterol no history of heart disease or CAD. Patient does have current symptoms feeling lightheaded and dizzy with room spinning. She denies being told that she has ever had vertigo in the past. No recent headache or ear pain. Patient is able to ambulate but does feel off balance MD Complaint: dizziness, near syncope, difficulty walking -: hour(s) Timing: gradual onset History of Same: Yes History of Trauma: No Severity: mild Improves With: nothing Worsens With: nothing Associated Symptoms: ataxia, syncope, weakness - Related Data Home Medications Medication Instructions Recorded Confirmed Cholecalciferol [Vitamin D3] 400 unit PO DAILY@1200 10/14/16 10/14/16 Losartan/Hydrochlorothiazide 1 each PO DAILY 10/14/16 10/14/16 [Losartan-Hctz 100-25 mg Tab] Omeprazole 40 mg PO DAILY 10/14/16 10/14/16 atenoloL [Tenormin] 50 mg PO DAILY 10/14/16 10/14/16 Previous Rx's Medication Instructions Recorded Acetaminophen-Codeine 300-30mg 1 each PO Q4H PRN #12 tablet 10/14/16 [Tylenol #3] Levofloxacin [Levaquin] 500 mg PO DAILY #10 tab 10/14/16 metroNIDAZOLE [Flagyl] 500 mg PO QID #40 tab 10/14/16 Amoxicillin/Potassium Clav 1 tab PO Q12HR #20 tab 06/12/21 [Augmentin 875-125 Tablet] Ondansetron Odt [Zofran Odt] 4 mg PO Q8HR PRN #20 tab 03/28/22 Allergies Allergy/AdvReac Type Severity Reaction Status Date / Time No Known Allergies Allergy Verified 01/10/23 04:04 Review of Systems ROS Statement: Those systems with pertinent positive or pertinent negative responses have been documented in the HPI. ROS Other: All systems not noted in ROS Statement are negative. Past Medical History Past Medical History: GERD/Reflux, Hypertension Additional Past Medical History / Comment(s): diverticulitis History of Any Multi-Drug Resistant Organisms: None Reported Past Surgical History: Orthopedic Surgery Additional Past Surgical History / Comment(s): bilat shoulder and knee surgeries. states she had gallstones removed but she is unsure if they removed the gallbladder itself. Past Psychological History: No Psychological Hx Reported Smoking Status: Never smoker Past Alcohol Use History: None Reported Past Drug Use History: None Reported General Exam Limitations: no limitations General appearance: alert, in no apparent distress Head exam: Present: atraumatic, normocephalic, normal inspection Eye exam: Present: normal appearance, PERRL, EOMI. Absent: scleral icterus, conjunctival injection, periorbital swelling ENT exam: Present: normal exam, mucous membranes moist Neck exam: Present: normal inspection. Absent: tenderness, meningismus, lymphadenopathy Respiratory exam: Present: normal lung sounds bilaterally. Absent: respiratory distress, wheezes, rales, rhonchi, stridor Cardiovascular Exam: Present: regular rate, normal rhythm, normal heart sounds. Absent: systolic murmur, diastolic murmur, rubs, gallop, clicks GI/Abdominal exam: Present: soft, normal bowel sounds. Absent: distended, tenderness, guarding, rebound, rigid Extremities exam: Present: normal inspection, full ROM, normal capillary refill. Absent: tenderness, pedal edema, joint swelling, calf tenderness Back exam: Present: normal inspection Neurological exam: Present: alert, oriented X3, CN II-XII intact Psychiatric exam: Present: normal affect, normal mood Skin exam: Present: warm, dry, intact, normal color. Absent: rash Course Vital Signs 06/08/24 06/08/24 16:42 19:57 Temperature 97.3 F L Pulse Rate 63 59 L Respiratory 17 16 Rate Blood Pressure 134/77 149/76 O2 Sat by Pulse 98 98 Oximetry - Reevaluation(s) Reevaluation #1: 06/08/24 17:24 Medical records reviewed Reevaluation #4: Was pt. sent in by a medical professional or institution (, PA, FINANCIAL DIRECTOR, urgent care, hospital, or group home...) When possible be specific @ -no Did you speak to anyone other than the patient for history (EMS, parent, family, police, friend...)? What history was obtained from this source @ -no Did you review nursing and triage notes (agree or disagree)? Why? @ -agree Are old charts reviewed (outside hosp., previous admission, EMS record, old EKG, old radiological studies, urgent care reports/EKG's, group home records)? Report findings @ -yes Differential Diagnosis (chest pain, altered mental status, abdominal pain women, abdominal pain men, vaginal bleeding, weakness, fever, dyspnea, syncope, headache, dizziness, GI bleed, back pain, seizure, CVA, palpatations, mental health, musculoskeletal)? @ -prior EKG interpreted by me (3pts min.). @ -yes X-rays interpreted by me (1pt min.). @ -yes negative for acute disease CT interpreted by me (1pt min.). @ -no U/S interpreted by me (1pt. min.). @ -no What testing was considered but not performed or refused? (CT, X-rays, U/S, labs)? Why? @ -none What meds were considered but not given or refused? Why? @ -none Did you discuss the management of the patient with other professionals (rory martinez i.e., Dr., PA, FINANCIAL DIRECTOR, lab, RT, psych nurse, social services coordinator, certified travel counselor, teacher, administrative services officer, counseling case manager)? Give summary @ -no Was smoking cessation discussed for >3mins.? @ -no Was critical care preformed (if so, how long)? @ -no Were there social determinants of health that impacted care today? How? (Homelessness, low income, unemployed, alcoholism, drug addiction, transportation, low edu. Level, literacy, decrease access to med. care, group home, rehab)? @ -none Was there de-escalation of care discussed even if they declined (Discuss DNR or withdrawal of care, Hospice)? DNR status @ -no What co-morbidities impacted this encounter? (DM, HTN, Smoking, COPD, CAD, Cancer, CVA, ARF, Chemo, Hep., AIDS, mental health diagnosis, sleep apnea, morbid obesity)? @ -none Was patient admitted / discharged? Hospital course, mention meds given and route, prescriptions, significant lab abnormalities, going to OR and other pertinent info. @ - Undiagnosed new problem with uncertain prognosis? @ -no Drug Therapy requiring intensive monitoring for toxicity (Heparin, Nitro, Insulin, Cardizem)? @ -no Were any procedures done? @ -no Diagnosis/symptom? @ - Acute, or Chronic, or Acute on Chronic? @ -Acute Uncomplicated (without systemic symptoms) or Complicated (systemic symptoms)? @ -Complicated Side effects of treatment? @ -no Exacerbation, Progression, or Severe Exacerbation? @ -exacerbation Poses a threat to life or bodily function? How? (Chest pain, [place], [place], pneumonia, PE, COPD, DKA, ARF, appy, cholecystitis, CVA, Diverticulitis, Homicidal, Suicidal, threat to staff... and all critical care pts) @ -yes Reevaluation #5: Differential Syncope: Valvular disease, hypertrophic cardiomyopathy, pulmonary embolism, tamponade, tachycardia, bradycardia, [place], hypovolemia, hemorrhage, dissection, anemia, intracranial hemorrhage, seizure, hypoglycemia, carbon monoxide poisoning, this is not meant to be an all-inclusive list. Differential CVA Ischemic stroke, hemorrhagic stroke, brain tumor, atypical migraine, Wernicke's encephalopathy, seizure, multiple sclerosis, meningitis, encephalitis, hypoglycemia, Guillain-Oden, electrolytes disturbance, myasthenia gravis.... This is not meant to be an all-inclusive list EKG Findings - EKG Comments: EKG Findings:: EKG is sinus 60 MS 159 QRS 74 QTc 411 - EKG Results: EKG: interpreted by KAVIN Medical Decision Making - Lab Data Result diagrams: 06/08/24 17:05 06/08/24 17:05 Lab Results 06/08/24 06/08/24 06/08/24 Range/Units 17:05 17:05 17:05 WBC 4.0 (3.8-10.6) k/uL RBC 4.23 (3.80-5.40) m/uL Hgb 13.8 (11.4-16.0) gm/dL Hct 40.8 (34.0-46.0) % MCV 96.4 (80.0-100.0) fL MCH 32.5 (25.0-35.0) pg MCHC 33.8 (31.0-37.0) g/dL RDW 12.6 (11.5-15.5) % Plt Count 107 L (150-450) k/uL MPV 9.3 Neutrophils % 79 % Lymphocytes % 13 % Monocytes % 5 % Eosinophils % 1 % Basophils % 0 % Neutrophils # 3.2 (1.3-7.7) k/uL Lymphocytes # 0.5 L (1.0-4.8) k/uL Monocytes # 0.2 (0-1.0) k/uL Eosinophils # 0.1 (0-0.7) k/uL Basophils # 0.0 (0-0.2) k/uL PT (10.0-12.5) sec INR (<1.2) APTT (22.0-30.0) sec D-Dimer (<0.60) mg/L FEU Sodium 136 L (137-145) mmol/L Potassium 3.6 (3.5-5.1) mmol/L Chloride 102 (98-107) mmol/L Carbon Dioxide 25 (22-30) mmol/L Anion Gap 9 mmol/L BUN 28 H (7-17) mg/dL Creatinine 1.21 H (0.52-1.04) mg/dL Est GFR (CKD-EPI)AfAm 53 (>60 ml/min/1.73 sqM) Est GFR (CKD-EPI)NonAf 46 (>60 ml/min/1.73 sqM) Glucose 154 H (74-99) mg/dL Calcium 9.3 (8.4-10.2) mg/dL Phosphorus 3.5 (2.5-4.5) mg/dL Magnesium 1.7 (1.6-2.3) mg/dL Total Bilirubin 0.6 (0.2-1.3) mg/dL AST 25 (14-36) U/L ALT 22 (4-34) U/L Alkaline Phosphatase 72 (38-126) U/L Troponin I <0.012 (0.000-0.034) ng/mL NT-Pro-B Natriuret Pep 149 pg/mL Total Protein 6.8 (6.3-8.2) g/dL Albumin 4.0 (3.5-5.0) g/dL // Range/Units 18:01 WBC (3.8-10.6) k/uL RBC (3.80-5.40) m/uL Hgb (11.4-16.0) gm/dL Hct (34.0-46.0) % MCV (80.0-100.0) fL MCH (25.0-35.0) pg MCHC (31.0-37.0) g/dL RDW (11.5-15.5) % Plt Count (150-450) k/uL MPV Neutrophils % % Lymphocytes % % Monocytes % % Eosinophils % % Basophils % % Neutrophils # (1.3-7.7) k/uL Lymphocytes # (1.0-4.8) k/uL Monocytes # (0-1.0) k/uL Eosinophils # (0-0.7) k/uL Basophils # (0-0.2) k/uL PT 10.5 (10.0-12.5) sec INR 0.9 (<1.2) APTT 20.2 L (22.0-30.0) sec D-Dimer 1.75 H (<0.60) mg/L FEU Sodium (137-145) mmol/L Potassium (3.5-5.1) mmol/L Chloride (98-107) mmol/L Carbon Dioxide (22-30) mmol/L Anion Gap mmol/L BUN (7-17) mg/dL Creatinine (0.52-1.04) mg/dL Est GFR (CKD-EPI)AfAm (>60 ml/min/1.73 sqM) Est GFR (CKD-EPI)NonAf (>60 ml/min/1.73 sqM) Glucose (74-99) mg/dL Calcium (8.4-10.2) mg/dL Phosphorus (2.5-4.5) mg/dL Magnesium (1.6-2.3) mg/dL Total Bilirubin (0.2-1.3) mg/dL AST (14-36) U/L ALT (4-34) U/L Alkaline Phosphatase (38-126) U/L Troponin I (0.000-0.034) ng/mL NT-Pro-B Natriuret Pep pg/mL Total Protein (6.3-8.2) g/dL Albumin (3.5-5.0) g/dL Disposition Clinical Impression: Near syncope, Vertigo, Flank pain Disposition: HOME SELF-CARE Condition: Fair Instructions (If sedation given, give patient instructions): Vertigo (ED) Is patient prescribed a controlled substance at d/c from ED?: No Referrals: Gomez Carter MD [Primary Care Provider] - 1-2 days Time of Disposition: 20:30
--- NOTE | 2024-06-08 17:47 | XR ---
EXAMINATION TYPE: XR chest 2V DATE OF EXAM: 06/08/2024 5:28 PM COMPARISON: Chest radiographs from 06/08/2024 CLINICAL INDICATION: Female, 69 years old with history of cp; TECHNIQUE: XR chest 2V Frontal and lateral views of the chest. FINDINGS: Lungs/Pleura: There is no evidence of pleural effusion, focal consolidation, or pneumothorax. Pulmonary vascularity: Unremarkable. Heart/mediastinum: Cardiomediastinal silhouette is unremarkable. Musculoskeletal: No acute osseous pathology. Right shoulder arthroplasty appears intact. IMPRESSION: No acute cardiopulmonary disease/process. [facility], , 06/08/2024 5:45 PM
[2024-06-08 17:54] LABS: ALT 22 U/L (4-34); AST 25 U/L (14-36); African American GFR (CKD) 53 (>60 ml/min/1.73 sqM); Alkaline Phosphatase 72 U/L (38-126); Anion Gap 9 mmol/L; Blood Urea Nitrogen 28 mg/dL (7-17); Calcium 9.3 mg/dL (8.4-10.2); Carbon Dioxide 25 mmol/L (22-30); Chloride 102 mmol/L (98-107); Glucose 154 mg/dL (74-99); Magnesium 1.7 mg/dL (1.6-2.3); Non-African American GFR(CKD) 46 (>60 ml/min/1.73 sqM); Phosphorus 3.5 mg/dL (2.5-4.5); Potassium 3.6 mmol/L (3.5-5.1); Sodium 136 mmol/L (137-145); Total Bilirubin 0.6 mg/dL (0.2-1.3); Total Protein 6.8 g/dL (6.3-8.2)
[2024-06-08 18:02] LABS: NT-Pro-B-Type Natriuretic Pept 149 pg/mL
--- NOTE | 2024-06-08 18:07 | CT ---
EXAMINATION TYPE: CT brain wo con DATE OF EXAM: 06/08/2024 5:52 PM COMPARISON: None. CLINICAL INDICATION: Female, 69 years old with history of vertigo, Dizziness and near syncope. Pt had episodes of "blacking out". TECHNIQUE: Brain: Axial CT images of the brain were obtained with coronal and sagittal reformats created and rev iewed. Contrast used: None. Oral contrast used: None. CT DLP: 1115.8 mGycm, Automated exposure control for dose reduction was used. FINDINGS: Brain: Extra-axial spaces: No abnormal extra-axial fluid collections. Ventricular system: Within normal limits Cerebral parenchyma: Few scattered intraparenchymal nonspecific calcifications at the yao matter whi te matter junction. No acute intraparenchymal hemorrhage or mass effect. The yao-white junction is well differentiated. Cerebellum: Unremarkable. Mass effect: No evidence of midline shift. Intracranial vasculature: unremarkable Soft tissues: Normal. Calvarium/osseous structures: No depressed skull fracture. Paranasal sinuses and mastoid air cells: Mild scattered paranasal sinus disease. Visualized orbits: Orbital contents are intact. IMPRESSION: 1. No acute intracranial process. 2. Scattered nonspecific calcifications of the brain possibly related to prior infection possibly co ngenital infection. Correlate with priors at outside institutions. [facility], , 06/08/2024 6:04 PM
[2024-06-08 18:42] LABS: INR 0.9 (<1.2); Prothrombin Time 10.5 sec (10.0-12.5)
[2024-06-08 18:43] LABS: Partial Thromboplastin Time 20.2 sec (22.0-30.0)
--- NOTE | 2024-06-08 19:19 | US ---
EXAMINATION TYPE: US venous doppler duplex LE LT DATE OF EXAM: 06/08/2024 7:05 PM COMPARISON: NONE CLINICAL INDICATION: Female, 69 years old with history of pain; No hx of DVT. Patient does not take b lood thinners. Bruising medial left popliteal area. Pain left leg started this morning. TECHNIQUE: The lower extremity deep venous system is examined utilizing real time linear array sonog kartik with graded compression, color doppler sonography, and spectral doppler. SIDE PERFORMED: Left FINDINGS: VESSELS IMAGED: Common Femoral Vein Deep Femoral Vein Greater Saphenous Vein * Femoral Vein Popliteal Vein Small Saphenous Vein * Proximal Calf Veins (* superficial vessels) Left Leg: No evidence of DVT, Color Doppler imaging shows patency of the vessels. Spectral waveforms are within normal limits. *Scanned left medial popliteal area of bruising- no abnormality seen by ultrasound. IMPRESSION: No evidence of DVT. [facility], , 06/08/2024 7:17 PM
--- NOTE | 2024-06-08 19:56 | CT ---
EXAMINATION TYPE: CT angio chest DATE OF EXAM: 06/08/2024 7:45 PM COMPARISON: None. CLINICAL INDICATION: Female, 69 years old with history of cp, Chest pain and elevated d-dimer., TECHNIQUE: Axial CT was performed with sagittal and coronal reformats. 3D reconstruction and/or MIP imaging was also performed on a separate workstation. IV CONTRAST: with IV Contrast, patient injected with 80ml mL of Isovue 370. (None if empty) CT DLP: 359.5 mGycm, Automated exposure control for dose reduction was used. FINDINGS: PULMONARY ARTERIES: The pulmonary arteries and their major tributaries are patent. I do not see bernadette dence for sizable filling defect to suggest pulmonary embolic process. LUNGS: The lungs are clear and free of infiltrate. No evidence for atelectasis. No pulmonary nodule or mass is detected. No pleural effusion. MEDIASTINUM: Thoracic aorta is of normal caliber.No evidence for mediastinal mass. No mediastinal l ymph nodes greater than 1cm. HEART: Size within normal limits. No significant coronary artery calcifications. HILAR STRUCTURES: No evidence for mass. No hilar lymph nodes greater than 1 cm. UPPER ABDOMEN: No significant abnormality is seen. IMPRESSION: 1. No evidence for Pulmonary embolism at this time. [facility], , 06/08/2024 7:54 PM
[2024-06-08 19:58] VITALS: RESP 16
[2024-06-08] MEDS: KETOROLAC 15 MG/ML 1 ML VIAL IVP STA (21:02)
[2024-06-08 21:09] VITALS: BP 148/85; PULSE 62; TEMP 97.6
== END 2024-06-08 21:07 | disposition home or self-care (01) ==
LOC: EC 16:39
DX: R55 Syncope and collapse (principal); R42 Dizziness and giddiness; R10.9 Unspecified abdominal pain
CPT/HCPCS: 36415; 93005; 85379; 83880; 80053; 83735; 84100; 84484; 85025; 85610; 85730; 71046; 93971; 70450; 71275; 99285; 96374; 96361; J1885; Q9967